=== PATIENT | male | born 1930 | race Caucasian/White ===

== ENCOUNTER 2016-10-26 19:17 | Emergency (ER) | payer MEDICARE ==
--- NOTE | 2016-10-26 20:02 | ER Document Report ---
ED Medical Screen (RME) - General Chief Complaint: Foot Pain Stated Complaint: FOOT INJURY Time Seen by Provider: 10/26/16 20:01 Mode of Arrival: Wheelchair Information source: Patient Notes: 86-year-old male presents with complaints of injury to the left foot left elbow left shoulder while working under car. Patient notes entire was on his foot for approximately 30 minutes I have greeted and performed a rapid initial assessment of this patient. A comprehensive ED assessment and evaluation of the patient, analysis of test results and completion of the medical decision making process will be conducted by additional ED providers. PHYSICAL EXAMINATION: GENERAL: Well-appearing, well-nourished and in no acute distress. HEAD: Atraumatic, normocephalic. EYES: Pupils equal round extraocular movements intact, conjunctiva are normal. ENT: Nares patent NECK: Normal range of motion LUNGS: No respiratory distress Musculoskeletal: Normal range of motion NEUROLOGICAL: Normal speech, normal gait. PSYCH: Normal mood, normal affect. SKIN: swelling erythema of the foot, abrasions contusions TRAVEL OUTSIDE OF THE [place] IN LAST 30 DAYS: No - Related Data Allergies/Adverse Reactions: procainamide HCl [From Procan SR] Allergy (Intermediate, Verified 10/26/16 19:22 ) Passed out lisinopril [Lisinopril] Allergy (Verified 10/26/16 19:22) Past Medical History - Past Medical History Cardiac Medical History: Reports: Hx Atrial Fibrillation, Hx Coronary Artery Disease, Hx Heart Attack - 83, Hx Hypercholesterolemia, Hx Hypertension Pulmonary Medical History: Reports: Hx Asthma - as child Denies: Hx Bronchitis, Hx COPD, Hx Pneumonia, Hx Tuberculosis Neurological Medical History: Denies: Hx Cerebrovascular Accident, Hx Seizures Endocrine Medical History: Reports: Hx Diabetes Mellitus Type 1, Hx Hypothyroidism Renal/ Medical History: Reports: Hx Benign Prostatic Hyperplasia. Denies: Hx Peritoneal Dialysis GI Medical History: Reports: Hx Hiatal Hernia - repair, Hx Ulcer - 1982 Musculoskeltal Medical History: Reports Hx Arthritis Psychiatric Medical History: Denies: Hx Depression Past Surgical History: Reports: Hx Abdominal Surgery, Hx Cardiac Surgery - Defibrillator. Denies: Hx Pacemaker - Immunizations Hx Diphtheria, Pertussis, Tetanus Vaccination: No Physical Exam - Vital signs Vitals: Temp Pulse Resp BP Pulse Ox 98.0 F 60 18 127/60 H 98 10/26/16 19:24 10/26/16 19:24 10/26/16 19:24 10/26/16 19:24 10/26/16 19:24 Course - Vital Signs Vital signs: Temp Pulse Resp BP Pulse Ox 98.0 F 60 18 127/60 H 98 10/26/16 19:24 10/26/16 19:24 10/26/16 19:24 10/26/16 19:24 10/26/16 19:24
[2016-10-26] MEDS ORDERED: DIPH/PERTUSS(ACELL)/TETANUS VAC/PF 0.5 ML SYR (>=10YO) IM ONE (21:21)
--- NOTE | 2016-10-26 21:21 | ER Document Report ---
ED General - General Chief Complaint: Foot Pain Stated Complaint: FOOT INJURY Time Seen by Provider: 10/26/16 20:01 Mode of Arrival: Wheelchair Notes: Patient is an 86-year-old male that comes emergency department for chief complaint of an episode just prior to arrival where he was pinned underneath his truck. He states he was working under the truck when the truck came off of the [facility], he states that it began to move, he states that he scraped his left shoulder and scraped his legs trying to get out from under it, he states his right foot was pinned under the trunk and holding the truck from moving for about 30 minutes before he was helped out. He reports bruising to the left elbow, scraping over his lower legs, pain to his left foot, and pain to his left shoulder. He also reports some pain in his left ribs. He denies chest pain otherwise, abdominal pain, focal numbness or weakness, head injury. He is not on a blood thinner despite having atrial fibrillation. He also has CAD , insulin-dependent diabetes, AICD. His tetanus is not UTD. TRAVEL OUTSIDE OF THE [place] IN LAST 30 DAYS: No - Related Data Allergies/Adverse Reactions: procainamide HCl [From Procan SR] Allergy (Intermediate, Verified 10/26/16 19:22 ) Passed out lisinopril [Lisinopril] Allergy (Verified 10/26/16 19:22) Past Medical History - General Information source: Patient - Social History Smoking Status: Never Smoker Frequency of alcohol use: None Drug Abuse: None Lives with: Family Family History: Reviewed & Not Pertinent - Past Medical History Cardiac Medical History: Reports: Hx Atrial Fibrillation, Hx Coronary Artery Disease, Hx Heart Attack - 83, Hx Hypercholesterolemia, Hx Hypertension Pulmonary Medical History: Reports: Hx Asthma - as child Denies: Hx Bronchitis, Hx COPD, Hx Pneumonia, Hx Tuberculosis Neurological Medical History: Denies: Hx Cerebrovascular Accident, Hx Seizures Endocrine Medical History: Reports: Hx Diabetes Mellitus Type 1, Hx Hypothyroidism Renal/ Medical History: Reports: Hx Benign Prostatic Hyperplasia. Denies: Hx Peritoneal Dialysis GI Medical History: Reports: Hx Hiatal Hernia - repair, Hx Ulcer - 1982 Musculoskeltal Medical History: Reports Hx Arthritis Psychiatric Medical History: Denies: Hx Depression Past Surgical History: Reports: Hx Abdominal Surgery, Hx Cardiac Surgery - Defibrillator. Denies: Hx Pacemaker - Immunizations Hx Diphtheria, Pertussis, Tetanus Vaccination: No Hx Pneumococcal Vaccination: 08/21/11 Review of Systems - Review of Systems Constitutional: No symptoms reported EENT: No symptoms reported Cardiovascular: No symptoms reported Respiratory: No symptoms reported Gastrointestinal: No symptoms reported Genitourinary: No symptoms reported Male Genitourinary: No symptoms reported Musculoskeletal: See HPI Skin: See HPI Hematologic/Lymphatic: No symptoms reported Neurological/Psychological: No symptoms reported Physical Exam - Vital signs Vitals: Temp Pulse Resp BP Pulse Ox 98.0 F 60 18 127/60 H 98 10/26/16 19:24 10/26/16 19:24 10/26/16 19:24 10/26/16 19:24 10/26/16 19:24 Interpretation: Normal - General General appearance: Appears well, Alert In distress: None - Patient sitting comfortably on the chair - HEENT Head: Normocephalic, Atraumatic Eyes: Normal Conjunctiva: Normal Extraocular movements intact: Yes Eyelashes: Normal Pupils: PERRL Sinus: Normal Nasal: Normal Mouth/Lips: Normal Mucous membranes: Normal Pharynx: Normal Neck: Normal - Respiratory Respiratory status: No respiratory distress Chest status: Tender - Patient did report tenderness over the left ribs, however I do not appreciate any tenderness on palpation, no ecchymosis, swelling , crepitus, or other abnormality noted over the side or anterior chest Breath sounds: Normal. No: Decreased air movement, Wheezing Chest palpation: Normal - Cardiovascular Rhythm: Regular. No: Tachycardia Heart sounds: Normal auscultation, S1 appreciated, S2 appreciated Murmur: No - Abdominal Inspection: Normal Distension: No distension Bowel sounds: Normal Tenderness: Nontender. No: Tender, Rebound Organomegaly: No organomegaly - Back Back: Normal, Nontender. No: Tender - No tenderness noted over the cervical, thoracic, lumbar spine, no saddle anesthesia, no signs of trauma., CVA tenderness - Extremities General upper extremity: Other - left shoulder abrasions noted, no open wounds; normal ROM of the shoulder, elbow, wrist. Normal distal N/V exam. Skin tears noted over the left elbow, soft tissue swelling at the bursa. Right elbow exam shows skin tears, normal UE exam of the right UE otherwise. General lower extremity: Other - Tenderness over the left foot dorsally at the base of the MCP joints, no significant soft tissue swelling, no significant ecchymosis noted, normal sensation, capillary refill, normal lower extremity exam bilaterally otherwise. - Neurological Neuro grossly intact: Yes Cognition: Normal Orientation: AAOx4 Cromwell Coma Scale Eye Opening: Spontaneous Cromwell Coma Scale Verbal: Oriented Cromwell Coma Scale Motor: Obeys Commands Cromwell Coma Scale Total: 15 Speech: Normal Motor strength normal: LUE, RUE, LLE, RLE Sensory: Normal - Psychological Associated symptoms: Normal affect, Normal mood - Skin Skin Temperature: Warm Skin Moisture: Dry Skin Color: Normal Course - Re-evaluation Re-evalutation: Potassium of 5.1. CK is not significantly elevated. Chemistry unremarkable. No evidence of significant crush injury or rhabdomyolysis. Patient has not an excellent historian but it appears only his foot was caught. Fortunately x- rays show no abnormalities including no fractures. Patient with clear lung sounds, he is sitting comfortably and has no signs of distress. He does have multiple abrasions and skin tears from the event. Patient was extensively cleaned and dressed. Discussed results with patient and family, discussed wound care, follow-up recommendations, return precautions. They state understanding and agreement. - Vital Signs Vital signs: Temp Pulse Resp BP Pulse Ox 97.7 F 59 L 18 138/62 H 100 10/26/16 23:14 10/26/16 23:14 10/26/16 23:14 10/26/16 23:14 10/26/16 23:14 - Laboratory Result Diagrams: 10/26/16 21:20 Laboratory results interpreted by me: 10/26/16 21:20 Potassium 5.1 H BUN 21 H Glucose 149 H Discharge - Discharge Clinical Impression: Rib pain on left side, Left elbow pain, Skin abrasion, Contusion of skin Injury of left foot Qualifiers: Encounter type: initial encounter Qualified Code(s): S99.922A - Unspecified injury of left foot, initial encounter Injury of left shoulder Qualifiers: Encounter type: initial encounter Qualified Code(s): S49.92XA - Unspecified injury of left shoulder and upper arm, initial encounter Condition: Stable Disposition: HOME, SELF-CARE Additional Instructions: No fractures or concerning abnormalities are seen on his workup today. The Steri-Strips will come off with time. Keep clean dressing over the sites. After they come off you may need to apply an antibiotic and clean dressing to the areas. He will likely be progressively sore over the next 2 days. Follow-up with primary care. Return to emergency department for any concerning symptoms including spreading redness, severe swelling, difficulty breathing, abdominal pain, or any other concerning symptoms. Care of Steri-Strip Closure Your cut has been closed up with a special surgical tape. For this type of cut, it can replace stitches. You must protect the wound just as you would with stitches, however. For the first few days, keep the wound area completely dry. This also means you should avoid activity which makes you sweat. Do not move the area if motion stretches or wrinkles the strips. Don't allow the area to be bumped -- if bleeding occurs, the blood can make the strips loosen. The strips are somewhat waterproof. After a few days, the physician may allow you to shower. Be sure to ask if it's OK. Do not remove the tape until it peels off by itself. At that time, the wound should be healed.
--- NOTE | 2016-10-26 21:43 | RADIOLOGY REPORT (SQ) ---
EXAM DESCRIPTION: FOOT LEFT COMPLETE COMPLETED DATE/TIME: 10/26/2016 9:01 pm REASON FOR STUDY: trauma COMPARISON: None. NUMBER OF VIEWS: Three views. TECHNIQUE: AP, lateral and oblique radiographic images acquired of the left foot. LIMITATIONS: None. FINDINGS: MINERALIZATION: Normal. BONES: No acute fracture or dislocation. No worrisome bone lesions. JOINTS: No effusions. SOFT TISSUES: No soft tissue swelling. No foreign body. OTHER: No other significant finding. IMPRESSION: NEGATIVE STUDY OF THE LEFT FOOT. NO RADIOGRAPHIC EVIDENCE OF ACUTE INJURY. TECHNICAL DOCUMENTATION: JOB ID: [id number] [employer]- All Rights Reserved
--- NOTE | 2016-10-26 21:45 | RADIOLOGY REPORT (SQ) ---
EXAM DESCRIPTION: SHOULDER LEFT 2 OR MORE VIEWS COMPLETED DATE/TIME: 10/26/2016 9:01 pm REASON FOR STUDY: trauma COMPARISON: None. NUMBER OF VIEWS: Three views. TECHNIQUE: Internal rotation, external rotation, and Y view images acquired of the left shoulder. LIMITATIONS: None. FINDINGS: MINERALIZATION: Normal. BONES: No acute fracture or dislocation. No worrisome bone lesions. JOINTS: No dislocation. VISUALIZED LUNGS AND RIBS: No pneumothorax. No rib fracture. SOFT TISSUES: No radiopaque foreign body. OTHER: No other significant finding. IMPRESSION: NEGATIVE STUDY OF THE LEFT SHOULDER. NO RADIOGRAPHIC EVIDENCE OF ACUTE INJURY. TECHNICAL DOCUMENTATION: JOB ID: [id number] [employer]- All Rights Reserved
[2016-10-26 21:52] LABS: ANION GAP 10 (5-19); BLOOD UREA NITROGEN 21 mg/dL (7-20); CALCIUM 9.8 mg/dL (8.4-10.2); CARBON DIOXIDE 27 mmol/L (22-30); CHLORIDE 102 mmol/L (98-107); CREATINE KINASE 117 U/L (55-170); CREATININE RESULT 0.89 mg/dL (0.52-1.25); GLUCOSE 149 mg/dL (75-110); POTASSIUM 5.1 mmol/L (3.6-5.0); SODIUM 138.9 mmol/L (137-145)
--- NOTE | 2016-10-26 21:52 | RADIOLOGY REPORT (SQ) ---
EXAM DESCRIPTION: ELBOW LEFT OVER 2 VIEWS COMPLETED DATE/TIME: 10/26/2016 9:01 pm REASON FOR STUDY: trauma COMPARISON: None. NUMBER OF VIEWS: Four views. TECHNIQUE: AP, lateral, and both oblique radiographic images acquired of the left elbow. LIMITATIONS: None. FINDINGS: MINERALIZATION: Normal. BONES: No acute fracture or dislocation. No worrisome bone lesions. JOINT: No effusion. SOFT TISSUES: Metallic foreign body is identified in the soft tissues at the level of the distal kelvin sukhdev. OTHER: No other significant finding. IMPRESSION: No evidence for acute fracture dislocation. Metallic foreign body in the soft tissues a t the level of the distal humerus. Other findings as noted above TECHNICAL DOCUMENTATION: JOB ID: [id number] [employer]- All Rights Reserved
--- NOTE | 2016-10-26 22:54 | RADIOLOGY REPORT (SQ) ---
EXAM DESCRIPTION: RIBS LEFT W/PA CHEST COMPLETED DATE/TIME: 10/26/2016 9:50 pm REASON FOR STUDY: pinned under truck, pain COMPARISON: December 2014 TECHNIQUE: Frontal view of the chest and additional views of the left ribs acquired. NUMBER OF VIEWS: Three views LIMITATIONS: None. FINDINGS: FRONTAL CXR: No pneumothorax. No pleural effusion. Chronic appearing pleural and parench ymal changes are identified primarily in the upper lung chaves which appear more extensive than on th e previous study. There are some minimal confluent densities such that I cannot exclude an acute pro cess superimposed on the chronic underlying changes. There is evidence for obstructive lung disease. RIBS: No displaced rib fractures. No lytic or blastic bony lesions. OTHER: No other significant finding. IMPRESSION: NO PNEUMOTHORAX. NO DISPLACED RIB FRACTURES. Other findings as noted above. COMMENT: SITE OF TRAUMA/COMPLAINT MARKED/STAMP COMPLETED: No TECHNICAL DOCUMENTATION: JOB ID: [id number] [employer]- All Rights Reserved
[2016-10-26 23:16] VITALS: BP 138/62
== END 2016-10-26 23:17 | disposition home or self-care (01) ==
LOC: ER 19:17
DX: S99.922A Unspecified injury of left foot, initial encounter (principal); S49.92XA Unspecified injury of left shoulder and upper arm, initial encounter; S50.02XA Contusion of left elbow, initial encounter; S90.32XA Contusion of left foot, initial encounter; R07.81 Pleurodynia; W22.8XXA Striking against or struck by other objects, initial encounter; I25.10 Atherosclerotic heart disease of native coronary artery without angina pectoris; E11.9 Type 2 diabetes mellitus without complications; Z79.4 Long term (current) use of insulin
CPT/HCPCS: 36415; 80048; 82550; 99284

== ENCOUNTER 2016-11-20 07:41 | Day surgery (SDC) | payer MEDICARE ==
[~2016-11-20 07:41] MED LIST: DIPHENHYDRAMINE HCL 50 MG/ML VIAL ONE; NALOXONE HCL INJ/PF 0.4 MG/1 ML SDV ONE; ONDANSETRON HCL INJ/PF 4 MG/2 ML SDV ONE
[2016-11-20] MEDS ORDERED: FLUMAZENIL INJ 0.5 MG/5 ML VIAL ONE (07:42)
[2016-11-20] MEDS ORDERED: GLUCAGON,HUMAN RECOMB 1 MG INJ ONE (07:42)
[2016-11-20] MEDS ORDERED: EPINEPHRINE INJ 1 MG/10 ML DISP.SYRIN ONE (07:42)
[2016-11-20] MEDS ORDERED: MIDAZOLAM 2 MG/2 ML INJ ONE (07:42)
[2016-11-20] MEDS ORDERED: FENTANYL CITRATE INJ/PF 100 MCG/2 ML AMPUL ONE (07:42)
--- NOTE | 2016-11-20 08:34 | Operative Report ---
Operative Report DATE OF SURGERY: 11/20/16 Operative Report: The risks benefits and alternatives of the procedure explained to the patient in detail and informed consent is obtained.A. GIF Olympus video scope was inserted into the patient's mouth and hypopharynx, the esophagus is identified intubated and insufflated, the scope was then advanced through the esophagus stomach and duodenum, retroflexion maneuver is done, the esophagus stomach and first and second portions of the duodenum examined PREOPERATIVE DIAGNOSIS: Dysphagia POSTOPERATIVE DIAGNOSIS: Schatzki's ring status post dilation. Hiatal hernia. Gastritis status post biopsy OPERATION: EGD with dilation. EGD with biopsy SURGEON: MARY PONCE ANESTHESIA: Moderate Sedation - 2 mg of Versed. Conscious sedation monitoring time 30 minutes. TISSUE REMOVED OR ALTERED: Mucosal specimen gastric antrum rule out Helicobacter pylori COMPLICATIONS: None. ESTIMATED BLOOD LOSS: None. INTRAOPERATIVE FINDINGS: As described above. PROCEDURE: Patient tolerated the procedure well. No immediate postprocedure complications are noted. Patient discharged in good condition. Discharge date 11/20/2016. Discharge diet: Regular. Discharge activity: Regular. 2-3 week follow-up to discuss findings. Patient is instructed to call the office or proceed to the emergency room should there be any further problems or questions. We will wait on biopsies.
[2016-11-20 09:33] VITALS: BP 116/53
== END 2016-11-20 09:40 | disposition home or self-care (01) ==
LOC: END 07:41
PROVIDERS: ATTEND Internal Medicine Gastroenterology
PROC: 0D558ZZ Destruction of Esophagus, Via Natural or Artificial Opening Endoscopic (ICD-10-PCS; 2016-11-20)
PROC: 0DB68ZX Excision of Stomach, Via Natural or Artificial Opening Endoscopic, Diagnostic (ICD-10-PCS; principal; 2016-11-20 08:00)
DX: K22.2 Esophageal obstruction (principal); K31.9 Disease of stomach and duodenum, unspecified; K44.9 Diaphragmatic hernia without obstruction or gangrene; E11.9 Type 2 diabetes mellitus without complications; E78.5 Hyperlipidemia, unspecified; M35.3 Polymyalgia rheumatica; I48.2 Chronic atrial fibrillation; D50.9 Iron deficiency anemia, unspecified; G47.33 Obstructive sleep apnea (adult) (pediatric); I11.0 Hypertensive heart disease with heart failure; I50.9 Heart failure, unspecified; E03.9 Hypothyroidism, unspecified; Z79.899 Other long term (current) drug therapy; Z79.82 Long term (current) use of aspirin; Z79.84 Long term (current) use of oral hypoglycemic drugs; Z88.8 Allergy status to other drugs, medicaments and biological substances
CPT/HCPCS: 43239; 82962; 88305 ×2; J2250; J0171; J1200; J1610; J2310; J2405; J3010; J3490

== ENCOUNTER 2016-12-10 09:54 | Day surgery (SDC) | payer MEDICARE ==
[2016-12-10] MEDS ORDERED: DEXTROSE 5%-1/2 NORMAL SALINE 1,000 ML IV PRN (10:23)
[2016-12-10] MEDS ORDERED: LIDOCAINE 2% JELLY 30 ML TUBE ONE (11:19)
[2016-12-10] MEDS ORDERED: EPINEPHRINE INJ/PF 1 MG/1 ML AMPULE ONE (11:19)
[2016-12-10] MEDS ORDERED: NALOXONE HCL INJ/PF 0.4 MG/1 ML SDV ONE (11:19)
[2016-12-10] MEDS ORDERED: EPINEPHRINE INJ 1 MG/10 ML DISP.SYRIN ONE (11:20)
[2016-12-10] MEDS ORDERED: FLUMAZENIL INJ 0.5 MG/5 ML VIAL ONE (11:20)
[2016-12-10] MEDS ORDERED: FENTANYL CITRATE INJ/PF 100 MCG/2 ML AMPUL ONE (11:20)
[2016-12-10] MEDS: LIDOCAINE 2% INJ (20 MG/ML) 20 ML MDV ONE ×4 (12:27→13:08)
--- NOTE | 2016-12-10 12:44 | EKG REPORT ---
SEVERITY:- ABNORMAL ECG - ATRIAL-PACED RHYTHM INFERIOR INFARCT, AGE INDETERMINATE : Confirmed by: Armond Russell MD 10-Dec-2016 12:43:49
[2016-12-10] MEDS: MIDAZOLAM 2 MG/2 ML INJ ONE ×7 (12:47→12:55)
--- NOTE | 2016-12-10 14:58 | OPERATIVE REPORT E ---
Operative Report NAME: ARMEN BOGGS : 1930 AGE: 86Y DATE OF SURGERY: 12/10/2016 ROOM: INDICATIONS: Patient is an 86-year-old male who came in with a past medical history of pulmonary infiltrate, right upper lobe, left lower lobe, and right lower lobe nodules and pulmonary nodules both in the right upper lobe and the right lower lobe, undergoing flexible bronchoscopy. SURGEON: BRAYAN BILL M.D. ANESTHESIA: Topical anesthesia using 2% lidocaine solution. SEDATION: Conscious sedation using Versed and fentanyl IV. BLOOD LOSS: minimal or less than 5 ml. COMPLICATIONS: None. PREOPERATIVE DIAGNOSIS: Pulmonary infiltrate and pulmonary nodules both lungs. POSTOPERATIVE DIAGNOSIS: Pulmonary infiltrate and pulmonary nodules both lungs. No endobronchial lesions noted. PROCEDURES: 1. Flexible bronchoscopy with bronchial washings both lungs. 2. Bronchoalveolar lavage, right upper lobe. OPERATIVE NOTE: Consent was obtained from the patient. Patient verbalized understanding of the indication risk and potential complication of the procedure. Patient was connected to the groundwater monitoring technician, pulse oximetry, respiratory monitor, blood pressure monitor, and oxygen saturation. Total of 2% lidocaine solution 5 mL was given via nebulizer. Flexible bronchoscope was inserted through the mouth guard. Total of 1% lidocaine solution 2 mL was given as the flexible bronchoscope was advanced. Versed was given at increments of 0.5 mg, total dose of 3.5 mg, and fentanyl was given at increments of 25 mcg, total dosage of 25 mcg IV. Vocal cords appeared normal. There are no lesions noted. Trachea appeared normal. Purulent secretions noted along the tracheal wall. Debi is at midline and sharp. Right mainstem bronchus and left mainstem bronchus appear normal. Right middle lobe bronchi appeared normal, right lower lobe bronchi appeared normal and right upper lobe bronchi appeared normal. Left upper lobe bronchi and lingular bronchi appeared normal. Left lower lobe bronchi appeared normal. Bronchial washings were performed on each lung. The first bronchial washing container contains secretions coming from both lungs. The second bronchial washing container contains secretions primarily from the right lung. Bronchioalveolar lavage of 20 mL x2 was applied to the apical segment of right right upper lobe with minimal recovery of BAL fluid. Bronchial secretions and lavage fluid were suctioned from the right upper lobe and collected to the second bronchial washing container. Patient tolerated the procedure very well. There are no immediate postoperative complications. DICTATING PHYSICIAN: BRAYAN BILL MD,ALIE,MPH [id number] PHY#: [id number] ID: [id number] JOB#: [id number] ACCT: [id number] cc:BRAYAN BILL M.D. > [facility]
[2016-12-10 15:05] VITALS: BP 116/66
== END 2016-12-10 15:00 | disposition home or self-care (01) ==
LOC: OROUT 09:54
PROVIDERS: ATTEND Internal Medicine Critical Care Medicine
PROC: 0B9C8ZX Drainage of Right Upper Lung Lobe, Via Natural or Artificial Opening Endoscopic, Diagnostic (ICD-10-PCS; principal; 2016-12-10 12:00)
DX: R91.1 Solitary pulmonary nodule (principal); J43.9 Emphysema, unspecified; I48.91 Unspecified atrial fibrillation; G47.33 Obstructive sleep apnea (adult) (pediatric); Z87.891 Personal history of nicotine dependence; Z79.899 Other long term (current) drug therapy; Z79.82 Long term (current) use of aspirin; Z79.51 Long term (current) use of inhaled steroids
CPT/HCPCS: 31624; 36415; 87070; 87205; 87206; 87116; 87101; 82962; 85025; 85610; 85730; 87077; 80048; 84484; 87186; 87015; 88162; 88104 ×2; 88305 ×2; 93005; 93010; J2250; J3490; J3010; J0171; J2310

== ENCOUNTER → 2016-12-11 | Outpatient (CLI) | payer MEDICARE ==
[2016-12-09 17:50] LABS: ABSOLUTE BASOPHILS # (AUTO) 0.1 10^3/uL (0.0-0.2); ABSOLUTE EOSINOPHILS # (AUTO) 0.1 10^3/uL (0.0-0.6); ABSOLUTE LYMPHOCYTES (AUTO) 0.7 10^3/uL (0.5-4.7); ABSOLUTE MONOCYTES (AUTO) 0.8 10^3/uL (0.1-1.4); ABSOLUTE NEUT (AUTO) 7.2 10^3/uL (1.7-8.2); BASOPHILS % (AUTO) 0.8 % (0-2); EOSINOPHILS % (AUTO) 1.7 % (0-6); HEMATOCRIT 32.3 % (37.9-51.0); HEMOGLOBIN 11.1 g/dL (13.5-17.0); LYMPHOCYTES % (AUTO) 8.3 % (13-45); MEAN CORPUSCULAR HEMOGLOBIN 31.4 pg (27.0-33.4); MEAN CORPUSCULAR HGB CONC 34.5 g/dL (32.0-36.0); MEAN CORPUSCULAR VOLUME 91 fl (80-97); RED BLOOD COUNT 3.54 10^6/uL (4.35-5.55); RED CELL DISTRIBUTION WIDTH 16.4 % (11.5-14.0); SEGMENTED NEUTROPHILS % (AUTO) 80.2 % (42-78)
[2016-12-09 17:55] LABS: PROTHROMBIN TIME 15.1 SEC (11.4-15.4)
[2016-12-09 17:56] LABS: PARTIAL THROMBOPLASTIN TIME 46.5 SEC (23.5-35.8)
[2016-12-09 18:16] LABS: ANION GAP 11 (5-19); BLOOD UREA NITROGEN 23 mg/dL (7-20); CALCIUM 9.5 mg/dL (8.4-10.2); CARBON DIOXIDE 25 mmol/L (22-30); CHLORIDE 103 mmol/L (98-107); CREATININE RESULT 1.12 mg/dL (0.52-1.25); GLUCOSE 208 mg/dL (75-110); POTASSIUM 4.6 mmol/L (3.6-5.0)
== END ==
LOC: OD 11:42
PROVIDERS: ATTEND Internal Medicine Critical Care Medicine
DX: J82 Pulmonary eosinophilia, not elsewhere classified (principal); R91.8 Other nonspecific abnormal finding of lung field; R63.4 Abnormal weight loss; J44.9 Chronic obstructive pulmonary disease, unspecified; J43.9 Emphysema, unspecified; G47.00 Insomnia, unspecified
CPT/HCPCS: 36415; 80048; 85025; 85610; 85730

== ENCOUNTER → 2017-01-28 | Outpatient (CLI) | payer MEDICARE | LOC: OD 11:35 | PROVIDERS: ATTEND Internal Medicine Critical Care Medicine | DX: J43.9 Emphysema, unspecified (principal); R06.00 Dyspnea, unspecified; R53.82 Chronic fatigue, unspecified; Z86.79 Personal history of other diseases of the circulatory system; A49.8 Other bacterial infections of unspecified site; J82 Pulmonary eosinophilia, not elsewhere classified; R63.4 Abnormal weight loss; A31.0 Pulmonary mycobacterial infection | CPT/HCPCS: 87070; 87077; 87186; 87205 ==

== ENCOUNTER → 2017-03-03 | Outpatient (CLI) | payer MEDICARE ==
[2017-03-03 11:52] LABS: ABSOLUTE BASOPHILS # (AUTO) 0.1 10^3/uL (0.0-0.2); ABSOLUTE EOSINOPHILS # (AUTO) 0.5 10^3/uL (0.0-0.6); ABSOLUTE LYMPHOCYTES (AUTO) 0.7 10^3/uL (0.5-4.7); ABSOLUTE MONOCYTES (AUTO) 0.4 10^3/uL (0.1-1.4); ABSOLUTE NEUT (AUTO) 5.6 10^3/uL (1.7-8.2); BASOPHILS % (AUTO) 1.1 % (0-2); EOSINOPHILS % (AUTO) 6.8 % (0-6); HEMATOCRIT 34.5 % (37.9-51.0); HEMOGLOBIN 11.2 g/dL (13.5-17.0); HGB HCT DIFFERENCE -0.9; LYMPHOCYTES % (AUTO) 9.5 % (13-45); MEAN CORPUSCULAR HEMOGLOBIN 30.4 pg (27.0-33.4); MEAN CORPUSCULAR HGB CONC 32.5 g/dL (32.0-36.0); MEAN CORPUSCULAR VOLUME 93 fl (80-97); MONOCYTES % (AUTO) 5.7 % (3-13); RED CELL DISTRIBUTION WIDTH 16.8 % (11.5-14.0); SEGMENTED NEUTROPHILS % (AUTO) 76.9 % (42-78); WHITE BLOOD COUNT 7.3 10^3/uL (4.0-10.5)
[2017-03-03 12:23] LABS: ALANINE AMINOTRANSFERASE 45 U/L (21-72); ALBUMIN 3.5 g/dL (3.5-5.0); ALKALINE PHOSPHATASE 91 U/L (38-126); ANION GAP 13 (5-19); ASPARTATE AMINO TRANSFERASE 43 U/L (17-59); BILIRUBIN,DIRECT 0.2 mg/dL (0.0-0.4); BILIRUBIN,TOTAL 0.4 mg/dL (0.2-1.3); BLOOD UREA NITROGEN 17 mg/dL (7-20); CALCIUM 8.8 mg/dL (8.4-10.2); CARBON DIOXIDE 24 mmol/L (22-30); CHLORIDE 106 mmol/L (98-107); CREATININE RESULT 0.89 mg/dL (0.52-1.25); GLUCOSE 136 mg/dL (75-110); POTASSIUM 4.2 mmol/L (3.6-5.0); SODIUM 143.1 mmol/L (137-145); TOTAL PROTEIN 6.7 g/dL (6.3-8.2)
== END ==
LOC: OD 10:28
PROVIDERS: ATTEND Internal Medicine Critical Care Medicine
DX: J43.9 Emphysema, unspecified (principal); R53.82 Chronic fatigue, unspecified; A49.8 Other bacterial infections of unspecified site; J82 Pulmonary eosinophilia, not elsewhere classified; R06.00 Dyspnea, unspecified; A31.0 Pulmonary mycobacterial infection; R63.4 Abnormal weight loss; Z86.79 Personal history of other diseases of the circulatory system
CPT/HCPCS: 36415; 80053; 85025

== ENCOUNTER → 2017-04-19 | Outpatient (CLI) | payer MEDICARE ==
[2017-04-19 11:08] LABS: ABSOLUTE BASOPHILS # (AUTO) 0.1 10^3/uL (0.0-0.2); ABSOLUTE EOSINOPHILS # (AUTO) 0.4 10^3/uL (0.0-0.6); ABSOLUTE LYMPHOCYTES (AUTO) 0.8 10^3/uL (0.5-4.7); ABSOLUTE MONOCYTES (AUTO) 0.7 10^3/uL (0.1-1.4); ABSOLUTE NEUT (AUTO) 6.7 10^3/uL (1.7-8.2); EOSINOPHILS % (AUTO) 4.3 % (0-6); HEMATOCRIT 36.6 % (37.9-51.0); MEAN CORPUSCULAR HEMOGLOBIN 30.1 pg (27.0-33.4); MEAN CORPUSCULAR HGB CONC 32.9 g/dL (32.0-36.0); MEAN CORPUSCULAR VOLUME 92 fl (80-97); MONOCYTES % (AUTO) 7.9 % (3-13); PLATELET COUNT 318 10^3/uL (150-450); RED BLOOD COUNT 3.99 10^6/uL (4.35-5.55); RED CELL DISTRIBUTION WIDTH 15.5 % (11.5-14.0); SEGMENTED NEUTROPHILS % (AUTO) 77.8 % (42-78); TOTAL CELLS COUNTED % (AUTO) 100 %; WHITE BLOOD COUNT 8.5 10^3/uL (4.0-10.5)
[2017-04-19 11:24] LABS: INTERNATIONAL RATION (INR) 1.02; PROTHROMBIN TIME 14.2 SEC (11.4-15.4)
[2017-04-19 11:41] LABS: ALANINE AMINOTRANSFERASE 34 U/L (21-72); ALBUMIN 3.7 g/dL (3.5-5.0); ALKALINE PHOSPHATASE 85 U/L (38-126); ANION GAP 7 (5-19); ASPARTATE AMINO TRANSFERASE 33 U/L (17-59); BILIRUBIN,DIRECT 0.2 mg/dL (0.0-0.4); BILIRUBIN,TOTAL 0.5 mg/dL (0.2-1.3); BLOOD UREA NITROGEN 19 mg/dL (7-20); CALCIUM 9.8 mg/dL (8.4-10.2); CARBON DIOXIDE 27 mmol/L (22-30); CHLORIDE 106 mmol/L (98-107); GLUCOSE 152 mg/dL (75-110); POTASSIUM 4.3 mmol/L (3.6-5.0); SODIUM 139.9 mmol/L (137-145); TOTAL PROTEIN 7.2 g/dL (6.3-8.2)
== END ==
LOC: OD 09:45
PROVIDERS: ATTEND Internal Medicine Critical Care Medicine
DX: J43.9 Emphysema, unspecified (principal); J82 Pulmonary eosinophilia, not elsewhere classified; R06.00 Dyspnea, unspecified; A31.0 Pulmonary mycobacterial infection; A49.8 Other bacterial infections of unspecified site; R53.82 Chronic fatigue, unspecified; G47.10 Hypersomnia, unspecified; Z86.79 Personal history of other diseases of the circulatory system; G47.00 Insomnia, unspecified; Z92.241 Personal history of systemic steroid therapy
CPT/HCPCS: 36415; 80053; 85025; 85610; 85730

== ENCOUNTER → 2017-07-06 | Outpatient (CLI) | payer MEDICARE ==
[~2017-07-06] MED LIST changes: -DIPHENHYDRAMINE HCL 50 MG/ML VIAL ONE; -NALOXONE HCL INJ/PF 0.4 MG/1 ML SDV ONE; -ONDANSETRON HCL INJ/PF 4 MG/2 ML SDV ONE; +REGADENOSON INJ 0.4 MG/5 ML DISP.SYRIN IV ONE
--- NOTE | 2017-07-07 07:34 | RADIOLOGY REPORT ---
STRESS TEST REPORT PATIENT NAME: ARMEN BOGGS ROOM#: DATE OF SERVICE: 07/06/2017 AGE: 87Y ORDER#: [id number] REFERRING MD: FLO ORTA M.D. PROCEDURE PERFORMED: Rest/stress, single isotope Cardiolite SPECT imaging with IV Lexiscan stress and gated SPECT imaging. INDICATIONS: Assessment of coronary artery disease, specifically assess for LAD ischemia. CLINICAL HISTORY: This 87-year-old male patient with no coronary artery disease, old inferior WI, status post [employer] RCA, but with moderate to severe lesion in the distal LAD, including risk factors of hypertension,hypercholesterolemia, with symptoms of CHF. REPORT: Patient received IV Lexiscan 0.4 mg infused over 10 seconds then flushed. The resting heart rate was 60 bpm and increased to 64 bpm at end infusion. The resting blood pressure was 116/69 and decreased to 99/48, eventually went back up to 117/53. The patient had no symptoms of chest pain but did complain of shortness of breath. The resting 12-lead EKG showed A-paced V-sensed, old inferior WI. At end infusion, same APVS, no ST changes seen. Myocardial perfusion imaging was performed at rest 60 minutes following the injection of 10.52 mCi of Cardiolite. Ten seconds after the IV Lexiscan injection, the patient was injected with 32.3 mCi of Cardiolite and flushed. Again, the post-chest tomographic imaging was performed approximately 60 minutes after stress. FINDINGS: The overall quality of this study is good. The left ventricular cavity is noted to be enlarged on both the rest and stress studies. There is no evidence of abnormal transient ischemic dilatation of the left ventricle. SPECT images showed minimal area of moderate reversible ischemia in the apex and apical inferior wall. Large areas of severe fixed (absent perfusion) in the inferoseptal wall, basal inferior wall, basal inferolateral wall. Gated SPECT imaging showed no motion contraction in the inferoseptal wall and inferior wall. The left ventricular ejection fraction was calculated to be 49%. IMPRESSION: 1. Myocardial perfusion imaging is abnormal. 2. There is a small area of moderate reversible ischemia in the apex and apical inferior wall. 3. There is a severe fixed (absent perfusion) defect in the inferior septal wall, basal inferolateral wall suggesting infarction. Overall left ventricular systolic function is minimally depressed at 49%, and there is no motion contraction in the inferoseptal wall and entire inferior wall. 4. No prior study for comparison. INTERPRETING PHYSICIAN: FLO ORTA M.D. /: [id number] TT: [id number] ID: [id number] /: [id number] TD: [id number] JOB: [id number] cc:FLO ORAT M.D. > MTDD
== END ==
LOC: RAD 06:27
PROVIDERS: ATTEND Internal Medicine Cardiovascular Disease
DX: I25.10 Atherosclerotic heart disease of native coronary artery without angina pectoris (principal)
CPT/HCPCS: 93017; 78452; A9500; J2785; Q9969

== ENCOUNTER → 2017-09-29 | Outpatient (CLI) | payer MEDICARE ==
[2017-10-01 07:46] LABS: HELICOBACTER PYLORI IGA AB <9.0 units (0.0-8.9); HELICOBACTER PYLORI IGG AB <0.80 (0.00-0.79); HELICOBACTER PYLORI IGM AB <9.0 units (0.0-8.9)
== END ==
LOC: OD 08:36
PROVIDERS: ATTEND Family Medicine
DX: R10.9 Unspecified abdominal pain (principal)
CPT/HCPCS: 36415; 86677

== ENCOUNTER 2018-11-08 11:04 | Day surgery (SDC) | payer MEDICARE ==
[2018-11-08] MEDS ORDERED: DIPHENHYDRAMINE HCL 50 MG/ML VIAL ONE (11:45)
[2018-11-08] MEDS ORDERED: ONDANSETRON HCL INJ/PF 4 MG/2 ML SDV ONE (11:45)
[2018-11-08] MEDS ORDERED: MIDAZOLAM 2 MG/2 ML INJ ONE (11:45)
[2018-11-08] MEDS ORDERED: FENTANYL CITRATE INJ/PF 100 MCG/2 ML AMPUL ONE (11:45)
[2018-11-08] MEDS ORDERED: FLUMAZENIL INJ 0.5 MG/5 ML VIAL ONE (11:46)
[2018-11-08] MEDS ORDERED: EPINEPHRINE INJ 1 MG/10 ML DISP.SYRIN ONE (11:46)
[2018-11-08] MEDS ORDERED: GLUCAGON,HUMAN RECOMB 1 MG INJ ONE (11:46)
[2018-11-08] MEDS ORDERED: NALOXONE HCL INJ/PF 0.4 MG/1 ML SDV ONE (11:46)
[2018-11-08] MEDS ORDERED: MIDAZOLAM 2 MG/2 ML INJ IV ONE (12:09)
--- NOTE | 2018-11-08 12:23 | Operative Report ---
Operative Report DATE OF SURGERY: 11/08/18 PREOPERATIVE DIAGNOSIS: Dysphagia POSTOPERATIVE DIAGNOSIS: Schatzki's ring status post breakage. Hiatal hernia. Gastritis status post biopsy OPERATION: EGD with biopsy SURGEON: MARY PONCE ANESTHESIA: Moderate Sedation - 2 mg of Versed. Conscious sedation monitoring time 30 minutes. TISSUE REMOVED OR ALTERED: As noted above COMPLICATIONS: None. ESTIMATED BLOOD LOSS: None. INTRAOPERATIVE FINDINGS: As noted above. PROCEDURE: Patient tolerated the procedure well No immediate postprocedure complications are noted. Patient is discharged in good condition. Discharge date 11/08/2018. Discharge diet: Regular. Discharge activity: Regular. 2 to 3-week follow-up to discuss findings. Patient is instructed to call the office or proceed to the emergency room should there be any further problems or questions. Wait on the pathology. The risks benefits and alternatives of the procedure explained to the patient in detail and informed consent is obtained.A GIF Olympus video scope was inserted into the patient's mouth and hypopharynx, the esophagus is identified intubated and insufflated ,the scope was then advanced through the esophagus stomach and duodenum, retroflexion maneuver is done, the esophagus stomach and first and second portions of the duodenum examined.
[2018-11-08 13:23] VITALS: BP 117/52
== END 2018-11-08 13:15 | disposition home or self-care (01) ==
LOC: END 11:04
PROVIDERS: ATTEND Internal Medicine Gastroenterology
DX: K22.2 Esophageal obstruction (principal); K44.9 Diaphragmatic hernia without obstruction or gangrene; K29.70 Gastritis, unspecified, without bleeding
CPT/HCPCS: 82962; 88342 ×2; 88305 ×2; J2250; J3010; 43239; J0171; J1200; J1610; J2310; J2405; J3490